=== PATIENT | male | born 1970 | race Two or more races ===

== ENCOUNTER 2023-05-28 19:24 | Emergency (ER) | payer OTHER ==
[~2023-05-28] VITALS: Ht 170.2 cm; Wt 88.6 kg
[2023-05-28 19:48] VITALS: TEMP 99
[2023-05-28] MEDS ORDERED: PHEN100C23 PO (19:59)
[2023-05-28] MEDS ORDERED: GABA-1201 PO (19:59)
[2023-05-28] MEDS ORDERED: MORP-131 PO (19:59)
[2023-05-28] MEDS ORDERED: HYDR2TAB37 PO (19:59)
[2023-05-28] MEDS ORDERED: LITH600C5 PO (19:59)
[2023-05-28] MEDS ORDERED: ARIP15TA27 PO (19:59)
[2023-05-28] MEDS ORDERED: FURO40 PO (19:59)
[2023-05-28] MEDS ORDERED: TRAZ150T80 PO (19:59)
[2023-05-28 20:37] LABS: BASOPHILS % (AUTO) 0.3 % (0.0-2.0); EOSINOPHILS % (AUTO) 1.3 % (1.0-6.0); HEMATOCRIT 37.1 % (41-53); HEMOGLOBIN 11.8 g/dL (13.5-17.5); LYMPHOCYTES # (AUTO) 0.8 K/uL (1.0-4.8); LYMPHOCYTES % (AUTO) 6.5 % (22.0-44.0); MEAN CORPUSCULAR HEMOGLOBIN 27.3 pg (26.0-34.0); MEAN CORPUSCULAR HGB CONC 31.9 G/dL (31.0-37.0); MEAN CORPUSCULAR VOLUME 86 fL (80-100); MONOCYTES # (AUTO) 0.8 K/uL (0.1-1.0); MONOCYTES % (AUTO) 5.9 % (2.0-9.0); NEUTROPHILS # (AUTO) 11.2 K/uL (1.8-7.7); PLATELET COUNT (AUTO) 302 K/uL (150-450); RED BLOOD CELL COUNT(AUTO) 4.32 MIL/uL (4.50-5.90); RED CELL DISTRIBUTION WIDTH 14.1 % (11.5-14.5)
[2023-05-28 20:46] LABS: ANION GAP 11 mmol/L (8-16); CALCIUM, TOTAL 9.2 mg/dL (8.8-10.5); CARBON DIOXIDE 34 mmol/L (22-29); CHLORIDE 94 mmol/L (98-107); CREATININE 0.65 mg/dL (0.60-1.30); GLOMERULAR FILTR. RATE CALC > 60 mL/min (>60); GLUCOSE,RANDOM 119 mg/dL (70-110); POTASSIUM 3.4 mmol/L (3.5-5.1); SODIUM SERUM 139 mmol/L (136-145)
[2023-05-28 20:52] LABS: ALANINE AMINOTRANSFERASE 109 U/L (12-78); ALBUMIN 3.1 g/dL (3.4-5.0); ALKALINE PHOSPHATASE 406 U/L (46-116); ASPARTATE AMINOTRANSFERASE 38 U/L (15-37); BILIRUBIN,TOTAL 0.4 mg/dL (0.1-1.0); TOTAL PROTEIN, SERUM 7.2 g/dL (6.4-8.2)
[2023-05-28 20:57] LABS: LACTIC ACID 1.1 mmol/L (0.4-2.0)
[2023-05-28] MEDS ORDERED: CLINDAMYCIN 600 MG/D5% WATER 50 ML IV ONE (21:00)
[2023-05-28] MEDS ORDERED: VANCOMYCIN 1GM/WATER(PEG/NADA) 200 ML IV ONE (22:00)
[2023-05-28 22:48] VITALS: BP 109/63; PULSE 88; RESP 17
[2023-05-28] MEDS ORDERED: ONDANSETRON HCL 4 MG/2 ML VIAL IVP ONE (23:45)
[2023-05-28] MEDS ORDERED: HYDROmorphone HCL 2 MG/ML SYRINGE IVP ONE (23:45)
[2023-05-29 01:03] LABS: COVID AG,FIA SOURCE NASAL SWAB
== END 2023-05-29 00:55 | disposition short-term general hospital (02) ==
LOC: EMS 19:26
DX: L03.115 Cellulitis of right lower limb (principal); F17.210 Nicotine dependence, cigarettes, uncomplicated; Z98.890 Other specified postprocedural states; Z88.0 Allergy status to penicillin; Z88.6 Allergy status to analgesic agent; Z20.822 Contact with and (suspected) exposure to COVID-19
CPT/HCPCS: 99285; 96365; 96375; 96367; 87426; 80053; 83605; 85025; 87040; 36415; 73552; J3490; J1170; J2405; Q9967; C9803